=== PATIENT | male | born 1945 | race Caucasian/White ===

== ENCOUNTER → 2017-08-21 | Outpatient (CLI) | payer OTHER, MEDICARE ==
[~2017-08-21] MED LIST: KETOROLAC10 MG PO; MEDROL DOSEPAK4 MG PO
== END | disposition home or self-care (01) ==
LOC: US 10:40
DX: I65.23 Occlusion and stenosis of bilateral carotid arteries (principal); Z95.5 Presence of coronary angioplasty implant and graft

== ENCOUNTER 2018-04-30 14:01 | Inpatient (IN) | payer OTHER, MEDICARE ==
[~2018-04-30] VITALS: Ht 160 cm
--- NOTE | ~2018-04-30 | O ---
[place], [place] OPERATIVE NOTE NAME: MANJIT WASSERMAN UNIT #: [id number] ROOM: 529 DOCTOR: NIKITA HARLEY MD BIRTHDATE: [birth year] DOS: 05/01/2018 INDICATIONS: This is a 73-year-old patient who has presented with chief complaint of diarrhea for 1 month, preceding antibiotic therapy. PROCEDURE: Today's procedure part of investigation is colonoscopy plus biopsy. PREMEDICATION: Propofol. SCOPE: Olympus folding colonoscope 10L video. REPORT: After putting the patient in left lateral position and application of lubricant to the scope, the scope was introduced. Thereafter under direct visualization, advanced through the length of colon without difficulty. Base of the cecum explored, appendiceal orifice identified, ileocecal valve was noticed. Scope was gradually withdrawn from ascending, transverse, descending colon. Few rare small diverticula are noticed at the sigmoid, otherwise. Biopsies was obtained from antrum transverse colon. Biopsies to rule out collagenous colitis, ruling out eosinophilic, lymphocytic infiltrates or collagenous deposit, basement membrane. The patient extubated, tolerated the procedure well. IMPRESSION AND PLAN: Normal colonoscopic examination in appearance. Mild diverticulosis of sigmoid colon, status post biopsy, awaiting biopsy reports. I am uncertain if this patient is having an extensive diarrhea yesterday. However, we have to await biopsy report. On the other hand, in order to reduce his symptomatology, we are going to start him on Questran 1 pack b.i.d., twice today and daily to assure if truly is responding to this. On the other hand because of the history that he is providing to have an extensive diarrhea, we are going to reculture his colon with a probiotic, Florastor 250 mg b.i.d. while inpatient and prescription for 2 weeks as an outpatient and this patient can be managed otherwise in outpatient setting. He is going to be advised to abstain excessive dairy product and workup in progress. [place], [place] OPERATIVE NOTE NAME: MANJIT WASSERMAN UNIT #: [id number] ROOM: 529 DOCTOR: NIKITA HARLEY MD BIRTHDATE: [birth year] NIKITA HARLEY MD CM:OPRECORD:OPERATIVE NOTE 1622 [id number] NIKITA HARLEY MD 05/02/18 0324 interface
--- NOTE | ~2018-04-30 | CON ---
[place], [place] REPORT OF CONSULTATION NAME[id number] UNIT #: [id number] ROOM: 529 DOCTOR: NIKITA HARLEY MD BIRTHDATE: [birth year] DOS: 05/01/2018 HISTORY OF PRESENT ILLNESS: This is a 73-year-old patient who has presented with chief complaint of 1 month of diarrhea and he has been giving me history of amoxicillin product intake for 10 days; however, the diarrhea has been preceding the issue of antibiotic intake. However, he was admitted through the Emergency Room. Lactic acid was 1.7. White blood cell was 6, H and H of 13 and 38, differential within normal limits. INR 1.0, comprehensive metabolic panel, electrolyte balance, magnesium 2.2. Troponins normal. BNP normal. Hemoglobin A1c 5.7. Ova and parasite and Giardia negative. C. diff is pending. Cryptosporidium negative. PAST MEDICAL HISTORY: Degenerative joint disease, constipation, abdominal pain, sciatica, history of sacral ulceration, decubitus, BPH and hypertension. PAST SURGICAL HISTORY: Endarterectomy, left-sided and history of appendectomy. SOCIAL HISTORY: Cigar smoker. Social alcohol consumer. FAMILY HISTORY: Noncontributory. ALLERGIES: No known medications. MEDICATIONS: Medication list reviewed. REVIEW OF SYSTEMS: HEENT: Denies double vision, blurred vision. RESPIRATORY: Denies shortness of breath. CARDIOVASCULAR: Denies chest pain. DIGESTIVE SYSTEM: Diarrhea. No emesis. PHYSICAL EXAMINATION: GENERAL: Frail patient. VITAL SIGNS: Stable. HEENT: Head is normocephalic, nontraumatic. Mouth and buccal mucosa benign. NECK: Supple, no thyromegaly, no cervical lymphadenopathy. CHEST: Symmetric anatomy, equal expansion. No wheeze, no rhonchi. HEART: Normal sinus rhythm, no gallop, no murmur. ABDOMEN: Soft. No hepato-organomegaly. Bowel sounds present. EXTREMITIES: No cyanosis, no pedal edema. NEUROLOGIC: Alert, oriented to time, place, person. A small sacral ulceration is noticed, which appears to be secondary to pressure. IMPRESSION: Chronic diarrhea, etiology to be defined at least 1 month duration. Infectious causes are being sorted out. Clostridium difficile is pending. We are going to proceed with evaluation of colon while he is here to assure there is no other concerning pathology and biopsies were going to be taken. [place], [place] REPORT OF CONSULTATION NAME: MANJIT WASSERMAN Desiree UNIT #: [id number] ROOM: 529 DOCTOR: CHERRI HOLLEY,NIKITA BIRTHDATE: [birth year] NIKITA HARLEY MD CM:CONSTR:REPORT OF CONSULTATION 1622 05/02/18 0316 interface
--- NOTE | ~2018-04-30 | EKG ---
[place], [place] ELECTROCARDIOGRAM REPORT NAME: MANJIT WASSERMAN UNIT #: [id number] ROOM: 529 DOCTOR: DEVON DRAFT REPORT BIRTHDATE: [birth year] [facility] Test Date: 2018-04-30 Test Time: 14:23:15 Pat Name: MANJIT WASSERMAN Department: Room: 529 Gender: M Sales And Marketing Intern: : 1945 Requested By: OLENA SAINI Order Number: [id number] Reading MD: Dilan Urena MD Measurements Intervals [place] Rate: 71 P: 46 MS: 123 QRS: 55 QRSD: 87 T: 18 QT: 380 QTc: 413 Interpretive Statements Sinus rhythm LVH with secondary repolarization abnormality Electronically Signed On 05-01-2018 4:29:11 PDT by Dilan Urena MD CM:EKGRPT:ELECTROCARDIOGRAM REPORT 1423 0429 OLENA PEPPER DRAFT REPORT OLENA SAINI DO
[~2018-04-30 14:01] MED LIST changes: +AMOXICILLIN500 M2 PO; +FLONASE ALLERG9.9 ML NAS; +HYDROCODONE-AC1 EAC1 PO; +MIRALAX POWDER255 G1 PO
[2018-04-30 14:03] VITALS: BP 142/86
[2018-04-30 14:25] LABS: BASO # 0.1 10*3/uL (0.0-0.1); BASO % 0.9 % (0.0-1.0); EOS # 0.1 10*3/uL (0.0-0.4); EOS % 1.5 % (1.0-4.0); HEMATOCRIT 38.7 % (42.0-52.0); HEMOGLOBIN 13.3 g/dl (14.0-18.0); LYMPH # 2.3 10*3/uL (1.3-4.4); LYMPH % 34.3 % (27.0-41.0); MEAN CELL VOLUME 93.9 fl (80.0-94.0); MEAN CORPUSCULAR HGB 32.3 pg (27.0-31.0); MEAN CORPUSCULAR HGB CONC 34.4 g/dl (33.0-37.0); MEAN PLATELET VOLUME 9.9 fl (9.6-12.3); MONO # 0.7 10*3/uL (0.1-1.0); MONO % 9.9 % (3.0-9.0); NEUT # 3.5 10*3/uL (2.3-7.9); NEUT % 53.2 % (47.0-73.0); PLATELET COUNT AUTOMATED 259 10*3/uL (130-400); RED BLOOD COUNT 4.12 10*6/uL (4.50-5.90); RED CELL DISTRI WIDTH 12.6 % (0-14.5); WHITE BLOOD COUNT 6.6 10*3/uL (4.8-10.8)
[2018-04-30 14:35] LABS: ACT PARTIAL THROMBO TIME 25.6 SECONDS (20.8-31.5)
[2018-04-30 14:40] LABS: ALBUMIN 3.6 gm/dl (3.1-4.5); ALKALINE PHOSPHATASE 90 U/L (45-117); BUN 17 mg/dl (7-24); CHLORIDE 104 mmol/L (98-107); CREATININE 0.77 mg/dL (0.70-1.30); LIPASE 114 U/L (73-393); POTASSIUM 3.8 mmol/L (3.5-5.1); SGOT/AST 18 IU/L (3-35); SGPT/ALT 26 U/L (12-78); SODIUM 138 mmol/L (136-145); TOTAL PROTEIN 7.3 gm/dL (6.4-8.2)
[2018-04-30 14:41] LABS: TROPONIN I < 0.015 ng/ml (<0.045)
[2018-04-30 20:00] VITALS: BP 200/80
[2018-04-30 21:07] VITALS: BP 164/82
[2018-05-01] VITALS (8 sets, daily range): BP systolic 96–170; BP diastolic 56–95
[2018-05-01 06:29] LABS: BASO # 0.1 10*3/uL (0.0-0.1); BASO % 0.8 % (0.0-1.0); EOS # 0.2 10*3/uL (0.0-0.4); EOS % 2.7 % (1.0-4.0); HEMOGLOBIN 12.8 g/dl (14.0-18.0); LYMPH # 2.4 10*3/uL (1.3-4.4); LYMPH % 34.2 % (27.0-41.0); MEAN CELL VOLUME 94.6 fl (80.0-94.0); MEAN CORPUSCULAR HGB 32.7 pg (27.0-31.0); MEAN CORPUSCULAR HGB CONC 34.6 g/dl (33.0-37.0); MEAN PLATELET VOLUME 10.2 fl (9.6-12.3); MONO # 0.7 10*3/uL (0.1-1.0); MONO % 9.9 % (3.0-9.0); NEUT # 3.7 10*3/uL (2.3-7.9); NEUT % 52.3 % (47.0-73.0); PLATELET COUNT AUTOMATED 231 10*3/uL (130-400); RED BLOOD COUNT 3.91 10*6/uL (4.50-5.90); RED CELL DISTRI WIDTH 12.5 % (0-14.5); WHITE BLOOD COUNT 7.1 10*3/uL (4.8-10.8)
[2018-05-01 07:05] LABS: BUN 10 mg/dl (7-24); CHLORIDE 105 mmol/L (98-107); CHOLESTEROL 138 mg/dL (<200); CREATININE 0.47 mg/dL (0.70-1.30); PHOSPHOROUS 2.5 mg/dL (2.5-4.9); POTASSIUM 3.5 mmol/L (3.5-5.1); SODIUM 139 mmol/L (136-145)
[2018-05-01 07:16] LABS: FREE T4 1.17 ng/dl (0.76-1.46); HDL CHOLESTEROL 41 mg/dl (40-60); LDL CHOLESTEROL 81 mg/dL (9-159); TRIGLYCERIDES 79 mg/dl (<150); VLDL CHOLESTEROL 16 mg/dL (6-40)
[2018-05-01 08:11] LABS: VITAMIN D, 25-HYDROXY 26.6 ng/mL (30-100)
[2018-05-02 01:05] VITALS: BP 128/73
[2018-05-02 08:00] VITALS: BP 122/72
[2018-05-02 12:00] VITALS: BP 126/64
[2018-05-02] MEDS ORDERED: Vitamin D PO (12:21)
[2018-05-02] MEDS ORDERED: VITAMIN D-32000 UNIT PO (12:21)
[2018-05-02] MEDS ORDERED: QUESTRAN POWDE378 GM PO (12:24)
[2018-05-02] MEDS ORDERED: FLORASTOR250 MG PO (12:24)
[2018-07-20] MEDS ORDERED: Zofran4 MG SL (13:32)
[2018-07-20] MEDS ORDERED: LACTINEX 0.2 MG1 TAB PO (13:32)
[2018-07-20] MEDS ORDERED: PHARMASSURE FO0.4 MG PO (13:32)
== END 2018-05-02 14:30 | disposition home or self-care (01) | DRG 392 ==
LOC: ED 14:01 → EDHOLD 15:28 → 5E 15:28
PROVIDERS: Emergency Medicine; Internal Medicine
PROC: 0DBN8ZX Excision of Sigmoid Colon, Via Natural or Artificial Opening Endoscopic, Diagnostic (ICD-10-PCS; principal; 2018-05-01)
PROC: 0DBL8ZX Excision of Transverse Colon, Via Natural or Artificial Opening Endoscopic, Diagnostic (ICD-10-PCS; principal; 2018-05-01)
DX: K57.30 Diverticulosis of large intestine without perforation or abscess without bleeding (principal); I10 Essential (primary) hypertension; E83.41 Hypermagnesemia; E86.0 Dehydration; N40.0 Benign prostatic hyperplasia without lower urinary tract symptoms; M19.90 Unspecified osteoarthritis, unspecified site; M51.36 Other intervertebral disc degeneration, lumbar region; M54.30 Sciatica, unspecified side; F17.290 Nicotine dependence, other tobacco product, uncomplicated; D50.9 Iron deficiency anemia, unspecified; R53.1 Weakness; Z71.6 Tobacco abuse counseling; Z90.49 Acquired absence of other specified parts of digestive tract; Z82.49 Family history of ischemic heart disease and other diseases of the circulatory system; Z83.1 Family history of other infectious and parasitic diseases

== ENCOUNTER 2018-06-01 14:09 | Inpatient (IN) | payer OTHER ==
[~2018-06-01] VITALS: Ht 160 cm; Wt 53.7 kg
--- NOTE | ~2018-06-01 | CON ---
[place], [place] REPORT OF CONSULTATION NAME: [id number] UNIT #: [id number] ROOM: 415 DOCTOR: MIGUEL A HARLEY MDFAIRFIELDBONNIE BIRTHDATE: [birth year] DOS: 06/03/2018 HISTORY OF PRESENT ILLNESS: A 73-year-old patient who presented with a chief complaint of right upper quadrant pain, undergoing investigation. The patient had a CBC study done, H and H of 11 and 34 with platelet count of 277. Lactic acid 0.8. Comprehensive metabolic panel, GFR greater than 60; however, bilirubin 4.4 with GOT, GPT of 114 and 141 respectively. Alkaline phosphatase is 696 and lipase of 611. Acetaminophen level was low. Salicylate level was low. The patient has been on Pepto-Bismol. CT scan of the abdomen and pelvis has been obtained. Gallbladder hydrops demonstrates all wall thickening, pericholecystic fluid and enhancement consistent with acute cholecystitis. Otherwise, the liver, diffuse periportal edema also was noticed. Hepatic parenchyma was otherwise unremarkable. Gallbladder again hydropic and there is also a cholecystitis suspected. H and H follow up to 13 and 38. Blood cultures negative. His urine culture greater than 100,000 Klebsiella pneumoniae. Gallbladder ultrasound study, gallbladder sludge, evidence of extrahepatic and intrahepatic dilation now noticed and no cholelithiasis noticed. The findings are suspicious for obstructive common duct pathology. PAST MEDICAL HISTORY: Associated with essential hypertension, benign prostatic hypertrophy, degenerative joint disease, lower back pain, protein-calorie malnutrition, vitamin D deficiency. PAST SURGICAL HISTORY: Carotid endarterectomy, appendectomy. SOCIAL HISTORY: Smoker. Social alcohol consumer. FAMILY HISTORY: Noncontributory. ALLERGIES: No known medications. MEDICATIONS: Reviewed. REVIEW OF SYSTEMS: HEENT: Denies double vision, blurred vision. RESPIRATORY: Admits some shortness of breath and cough. CARDIOVASCULAR: Denies chest pain. DIGESTIVE SYSTEM: No hematemesis, no hematochezia. Right upper quadrant pain. Abnormal LFTs. PHYSICAL EXAMINATION: VITAL SIGNS: Stable, frail patient. HEENT: Head normocephalic, nontraumatic. Eyes: Pupils round, reactive. Sclerae nonicteric. Conjunctivae pink. HEART: Normal sinus rhythm, no gallop, no murmur. LUNGS: Pattern like COPD, decreased air entry. No wheeze, no rhonchi, however. ABDOMEN: Soft. No hepato-organomegaly. Bowel sounds present. Tender in the right upper quadrant. EXTREMITIES: No cyanosis, no pedal edema. NEUROLOGIC: Alert, oriented to time, place, and person. [place], [place] REPORT OF CONSULTATION NAME: MANJIT WASSERMAN UNIT #: [id number] ROOM: 415 DOCTOR: NIKITA HARLEY MD BIRTHDATE: [birth year] IMPRESSION: Right upper quadrant pain, cholecystitis, ruling out synchronous pathology and choledocholithiasis versus carcinomatous lesion at the ampulla level. Abnormal liver function tests secondary to above. The patient with a history of degenerative joint disease and essential hypertension, vitamin D deficiency, benign prostatic enlargement as well. He has been noticed to have extensive vascular calcific pathology. 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 Infrarenal artery demonstrate severe ulcerative atherosclerotic plaque, fusiform aneurysm, suprarenal atherosclerosis as detailed in MRI of the abdomen. PLAN AND DISCUSSION: We are going to see what the status of the common duct is. Hopefully, we are going to be able to cannulate him and if such, then we are going to provide a stent in common duct and I recommend that to be followed if next day cholecystectomy. Bearing in mind that he is extremely compromised as far as vascular insufficiency is concerned. NIKITA HARLEY MD CM:CONSTR:REPORT OF CONSULTATION 1524 06/04/18 0223 interface
--- NOTE | ~2018-06-01 | O ---
[place], [place] OPERATIVE NOTE NAME: MANJIT WASSERMAN UNIT #: [id number] ROOM: 415 DOCTOR: NIKITA HARLEY MD BIRTHDATE: [birth year] DOS: 06/03/2018 GASTROENDOSCOPIC REPORT HISTORY OF PRESENT ILLNESS: A 73-year-old patient who presented with chief complaint of abnormal liver function test, perihepatic fluid, pericholecystic fluid, hydrops of gallbladder, edema of the gallbladder and right upper quadrant pain. The patient suspected to have common duct pathology, i.e., obstructive carcinoma versus distal common duct/colic of gallbladder sonogram was evidence of extrahepatic and intrahepatic dilation. Findings suspicious for obstructed common duct correlated with recent studies. PROCEDURE: Today's procedure part of investigation is ERCP. PREMEDICATION: Propofol and sedation by anesthesia. SCOPE: Olympus side-viewing duodenoscope. REPORT: After putting the patient in left lateral position and application of lubricant to the scope, the scope was introduced. Thereafter, under direct visualization, advanced through the length of esophagus into gastric pouch into the duodenal bulb in front of the ampulla of Vater, ampulla of Vater is extremely edematous on approach; however, we were able to cannulate the papilla. Papilla is extremely dominant with pancreatic duct and common duct could not be cannulated. Although some bile was discharged upon manipulation. However, papilledema continues and C-loop of the duodenum is extremely inflamed and I am concerned if there is any carcinoma around the area. However, the pancreatic duct was injected, very irregular pancreatic duct and photos were obtained. The patient was extubated after multiple tries to access the common duct, which was fruitless. IMPRESSION: Papilledema, abnormal pancreatic duct, inflammation and edema of the second part of duodenum, concerned if there is underlying carcinoma. PLAN AND DISCUSSION: This patient with extreme vascular calcifications in a generalized form and a very large gallbladder. We are going to pericholecystic fluid and perihepatic fluid and it would be friend to transfer to tertiary center for definitive management. [place], [place] OPERATIVE NOTE NAME: MANJIT WASSERMAN UNIT #: [id number] ROOM: 415 DOCTOR: NIKITA HARLEY MD BIRTHDATE: [birth year] NIKITA HARLEY MD CM:MARYAM:OPERATIVE NOTE 1644 1716 NIKITA HARLEY MD 06/10/18 0808 interface
[~2018-06-01 14:09] MED LIST changes: +FLORASTOR250 MG PO; +QUESTRAN POWDE378 GM PO; +VITAMIN D-32000 UNIT PO; +Vitamin D PO
[2018-06-01 14:10] VITALS: BP 131/79
[2018-06-01 14:59] LABS: BASO % 0.4 % (0.0-1.0); EOS # 0.1 10*3/uL (0.0-0.4); EOS % 0.6 % (1.0-4.0); HEMATOCRIT 34.4 % (42.0-52.0); HEMOGLOBIN 11.9 g/dl (14.0-18.0); LYMPH # 1.5 10*3/uL (1.3-4.4); MEAN CELL VOLUME 95.6 fl (80.0-94.0); MEAN CORPUSCULAR HGB 33.1 pg (27.0-31.0); MEAN CORPUSCULAR HGB CONC 34.6 g/dl (33.0-37.0); MEAN PLATELET VOLUME 10.3 fl (9.6-12.3); MONO % 10.8 % (3.0-9.0); NEUT # 6.7 10*3/uL (2.3-7.9); NEUT % 71.9 % (47.0-73.0); PLATELET COUNT AUTOMATED 277 10*3/uL (130-400); RED CELL DISTRI WIDTH 12.9 % (0-14.5); WHITE BLOOD COUNT 9.3 10*3/uL (4.8-10.8)
[2018-06-01 15:21] LABS: ALBUMIN 2.5 gm/dl (3.1-4.5); ALKALINE PHOSPHATASE 696 U/L (45-117); BUN 8 mg/dl (7-24); CHLORIDE 100 mmol/L (98-107); LIPASE 611 U/L (73-393); POTASSIUM 3.7 mmol/L (3.5-5.1); SGOT/AST 114 IU/L (3-35); SGPT/ALT 141 U/L (12-78); SODIUM 137 mmol/L (136-145); TOTAL PROTEIN 6.4 gm/dL (6.4-8.2)
[2018-06-01 16:00] VITALS: BP 132/81
[2018-06-01 16:32] LABS: ACETAMINOPHEN (TYLENOL) < 5.0 ug/ml (10-30)
[2018-06-01 16:33] LABS: CLARITY TURBID (CLEAR); COLOR ORANGE (YELLOW); GLUCOSE NEGATIVE (NEGATIVE)
[2018-06-01 16:34] LABS: BILIRUBIN 3+ (NEGATIVE); BLOOD NEGATIVE (NEGATIVE); KETONE TRACE (NEGATIVE); LEUKO ESTERASE 2+ (NEGATIVE); NITRITE POSITIVE (NEGATIVE); UROBILINOGEN 0.2 E.U./dl (0.2-1.0)
[2018-06-01 16:36] LABS: BACTERIA 4+; MUCOUS TRACE; RBC 0-2 rbc/hpf (0-2); WBC 31-40 wbc/hpf (0-5)
[2018-06-01 16:39] LABS: ETHYL ALCOHOL < 3.0 mg/dl (<3)
[2018-06-01 18:02] VITALS: BP 129/76
[2018-06-01 20:24] VITALS: BP 130/70
[2018-06-02] VITALS: BP 172/78
[2018-06-02 04:00] VITALS: BP 140/84
[2018-06-02 05:52] LABS: BASO # 0.1 10*3/uL (0.0-0.1); BASO % 0.5 % (0.0-1.0); EOS # 0.1 10*3/uL (0.0-0.4); EOS % 0.9 % (1.0-4.0); HEMATOCRIT 38.4 % (42.0-52.0); LYMPH # 1.7 10*3/uL (1.3-4.4); LYMPH % 17.1 % (27.0-41.0); MEAN CELL VOLUME 95.3 fl (80.0-94.0); MEAN CORPUSCULAR HGB 32.3 pg (27.0-31.0); MEAN CORPUSCULAR HGB CONC 33.9 g/dl (33.0-37.0); MEAN PLATELET VOLUME 10.7 fl (9.6-12.3); MONO # 0.9 10*3/uL (0.1-1.0); MONO % 8.8 % (3.0-9.0); NEUT % 72.4 % (47.0-73.0); PLATELET COUNT AUTOMATED 315 10*3/uL (130-400); RED BLOOD COUNT 4.03 10*6/uL (4.50-5.90); RED CELL DISTRI WIDTH 12.8 % (0-14.5); WHITE BLOOD COUNT 9.7 10*3/uL (4.8-10.8)
[2018-06-02 06:07] LABS: BUN 9 mg/dl (7-24); CHLORIDE 101 mmol/L (98-107); CREATININE 0.49 mg/dL (0.70-1.30); PHOSPHOROUS 3.3 mg/dL (2.5-4.9); POTASSIUM 3.7 mmol/L (3.5-5.1); SODIUM 138 mmol/L (136-145)
[2018-06-02 06:12] LABS: ACT PARTIAL THROMBO TIME 27.6 SECONDS (20.8-31.5); INTERNATIONAL NORM RATIO 1.1 (2.0-3.5)
[2018-06-02 08:00] VITALS: BP 148/72
[2018-06-02 12:00] VITALS: BP 137/78
[2018-06-02 16:00] VITALS: BP 139/82
[2018-06-02 20:00] VITALS: BP 115/73
[2018-06-03] VITALS (10 sets, daily range): BP systolic 92–142; BP diastolic 30–79
[2018-06-03 08:12] LABS: BASO % 0.4 % (0.0-1.0); EOS # 0.1 10*3/uL (0.0-0.4); EOS % 1.3 % (1.0-4.0); HEMATOCRIT 33.4 % (42.0-52.0); HEMOGLOBIN 11.5 g/dl (14.0-18.0); LYMPH # 1.5 10*3/uL (1.3-4.4); LYMPH % 17.9 % (27.0-41.0); MEAN CELL VOLUME 94.4 fl (80.0-94.0); MEAN CORPUSCULAR HGB 32.5 pg (27.0-31.0); MEAN CORPUSCULAR HGB CONC 34.4 g/dl (33.0-37.0); MEAN PLATELET VOLUME 10.3 fl (9.6-12.3); MONO # 0.9 10*3/uL (0.1-1.0); MONO % 10.6 % (3.0-9.0); NEUT # 5.9 10*3/uL (2.3-7.9); NEUT % 69.4 % (47.0-73.0); PLATELET COUNT AUTOMATED 278 10*3/uL (130-400); RED BLOOD COUNT 3.54 10*6/uL (4.50-5.90); RED CELL DISTRI WIDTH 12.7 % (0-14.5); WHITE BLOOD COUNT 8.5 10*3/uL (4.8-10.8)
[2018-06-03 08:37] LABS: ALBUMIN 2.4 gm/dl (3.1-4.5); BUN 10 mg/dl (7-24); CHLORIDE 100 mmol/L (98-107); POTASSIUM 3.6 mmol/L (3.5-5.1); SGPT/ALT 125 U/L (12-78); SODIUM 136 mmol/L (136-145)
[2018-06-03 08:40] LABS: ALKALINE PHOSPHATASE 699 U/L (45-117); CREATININE 0.53 mg/dL (0.70-1.30); SGOT/AST 96 IU/L (3-35); TOTAL PROTEIN 6.1 gm/dL (6.4-8.2)
[2018-06-04] VITALS: BP 125/77
[2018-06-04 06:22] LABS: BASO % 0.4 % (0.0-1.0); EOS # 0.1 10*3/uL (0.0-0.4); EOS % 1.4 % (1.0-4.0); HEMATOCRIT 32.4 % (42.0-52.0); HEMOGLOBIN 11.3 g/dl (14.0-18.0); LYMPH # 1.5 10*3/uL (1.3-4.4); LYMPH % 21.6 % (27.0-41.0); MEAN CELL VOLUME 93.6 fl (80.0-94.0); MEAN CORPUSCULAR HGB 32.7 pg (27.0-31.0); MEAN CORPUSCULAR HGB CONC 34.9 g/dl (33.0-37.0); MEAN PLATELET VOLUME 10.9 fl (9.6-12.3); MONO # 0.9 10*3/uL (0.1-1.0); MONO % 12.4 % (3.0-9.0); NEUT # 4.5 10*3/uL (2.3-7.9); NEUT % 64.1 % (47.0-73.0); PLATELET COUNT AUTOMATED 282 10*3/uL (130-400); RED BLOOD COUNT 3.46 10*6/uL (4.50-5.90); RED CELL DISTRI WIDTH 12.7 % (0-14.5)
[2018-06-04 06:33] LABS: ALBUMIN 2.2 gm/dl (3.1-4.5); ALKALINE PHOSPHATASE 718 U/L (45-117); BUN 9 mg/dl (7-24); CHLORIDE 102 mmol/L (98-107); CREATININE 0.54 mg/dL (0.70-1.30); POTASSIUM 3.3 mmol/L (3.5-5.1); SGOT/AST 128 IU/L (3-35); SGPT/ALT 129 U/L (12-78); SODIUM 138 mmol/L (136-145); TOTAL PROTEIN 5.7 gm/dL (6.4-8.2)
[2018-06-04 08:00] VITALS: BP 130/78
[2018-06-04 12:00] VITALS: BP 144/78
[2018-06-04 16:00] VITALS: BP 123/63
[2018-07-20] MEDS ORDERED: LACTINEX 0.2 MG1 TAB PO (13:32)
[2018-07-20] MEDS ORDERED: PHARMASSURE FO0.4 MG PO (13:32)
[2018-07-20] MEDS ORDERED: Zofran4 MG SL (13:32)
== END 2018-06-04 17:06 | disposition short-term general hospital (02) | DRG 444 ==
LOC: ED 14:09 → EDHOLD 17:36 → 4E 17:36
PROVIDERS: Internal Medicine; Nurse Practitioner Family
PROC: 0FJD8ZZ Inspection of Pancreatic Duct, Via Natural or Artificial Opening Endoscopic (ICD-10-PCS; principal; 2018-06-03)
DX: K80.01 Calculus of gallbladder with acute cholecystitis with obstruction (principal); E43 Unspecified severe protein-calorie malnutrition; H47.10 Unspecified papilledema; K80.43 Calculus of bile duct with acute cholecystitis with obstruction; N30.90 Cystitis, unspecified without hematuria; E80.6 Other disorders of bilirubin metabolism; E86.0 Dehydration; M51.36 Other intervertebral disc degeneration, lumbar region; R82.71 Bacteriuria; I71.4 Abdominal aortic aneurysm, without rupture; F17.210 Nicotine dependence, cigarettes, uncomplicated; K29.80 Duodenitis without bleeding; D53.9 Nutritional anemia, unspecified; F17.200 Nicotine dependence, unspecified, uncomplicated; I10 Essential (primary) hypertension; E55.9 Vitamin D deficiency, unspecified; B96.89 Other specified bacterial agents as the cause of diseases classified elsewhere; N40.1 Benign prostatic hyperplasia with lower urinary tract symptoms; Z90.49 Acquired absence of other specified parts of digestive tract; Z71.6 Tobacco abuse counseling; Z82.49 Family history of ischemic heart disease and other diseases of the circulatory system; Z82.5 Family history of asthma and other chronic lower respiratory diseases; Z79.1 Long term (current) use of non-steroidal anti-inflammatories (NSAID); Z79.899 Other long term (current) drug therapy; Z68.20 Body mass index [BMI] 20.0-20.9, adult

== ENCOUNTER 2018-06-11 18:22 | Inpatient (IN) | payer OTHER ==
[~2018-06-11] VITALS: Ht 160 cm; Wt 46.7 kg
--- NOTE | ~2018-06-11 | EKG ---
[place], [place] ELECTROCARDIOGRAM REPORT NAME: MANJIT WASSERMAN UNIT #: [id number] ROOM: 406 DOCTOR: DEVON DRAFT REPORT BIRTHDATE: [address] [facility] Test Date: 2018-06-11 Test Time: 18:53:19 Pat Name: MANJIT WASSERMAN Department: ER Room: 406 Gender: M Rapid Transit Operator: Dianne Guo : 1945 Requested By: LEA LIZAMA DNP Order Number: [id number] Reading MD: Felicia Hagan MD Measurements Intervals [place] Rate: 80 P: 65 DE: 167 QRS: 63 QRSD: 92 T: -39 QT: 401 QTc: 463 Interpretive Statements Sinus rhythm LVH with secondary repolarization abnormality Baseline wander in lead(s) V3 Compared to ECG 04/30/2018 14:23:15 Sinus rhythm no longer present Electronically Signed On 06-12-2018 12:12:15 PDT by Felicia Hagan MD CM:EKGRPT:ELECTROCARDIOGRAM REPORT 1212 LEA LIZAMA DNP EPIPHANY DRAFT REPORT LEA LIZAMA DNP
--- NOTE | ~2018-06-11 | CON ---
[place], [place] REPORT OF CONSULTATION [id number] UNIT #: [id number] ROOM: 406 DOCTOR: CHERRI HOLLEYNIKITA BIRTHDATE: [birth year] DOS: 06/12/2018 GASTROENDOSCOPIC CONSULTATION REPORT HISTORY OF PRESENT ILLNESS: A 73-year-old patient who has presented with nausea, vomiting, diarrhea history. The patient is known with abnormal liver function tests, previously ERCP, then stented in [facility] after transfer from [place]. The patient apparently did not have his cholecystectomy there done and he has continued with his symptomatology right at the time of admission. White blood cells 7, H and H of 11 and 35. Serum ammonia level was 18. His chest x-ray, no acute process. CT of the brain, no acute process. His comprehensive metabolic panel, GFR greater than 60. Electrolyte imbalance; bilirubin 2.2 and GOT/GPT 46 and 95, alkaline phosphatase of 505 and lipase of 550. His INR 1.0. His C. diff is negative and CBC stable. PAST MEDICAL HISTORY: Associated essential hypertension, benign prostatic hypertrophy, infrarenal abdominal aortic aneurysm and protein-calorie malnutrition. PAST SURGICAL HISTORY: Endarterectomy, appendectomy. SOCIAL HISTORY: Smoker. Social alcohol consumer. FAMILY HISTORY: Noncontributory. ALLERGIES: No known medications. MEDICATIONS: List has been reviewed including cholestyramine 1 pack a day that has not helped him much. He has been also on Florastor. REVIEW OF SYSTEMS: HEENT: Denies double vision or blurred vision. RESPIRATORY: Denies acute shortness of breath. CARDIOVASCULAR: Denies acute chest pain. DIGESTIVE SYSTEM: Nausea, vomiting, diarrhea, fear of eating because of the diarrhea. PHYSICAL EXAMINATION: VITAL SIGNS: Frail patient. HEENT: Head: Normocephalic, nontraumatic. Eyes: Pupils round, reactive. Sclerae nonicteric. Conjunctivae pink. NECK: Supple, no thyromegaly. CHEST: Symmetric anatomy, no wheeze, no rhonchi. HEART: Normal sinus rhythm, no gallop, no murmur. ABDOMEN: Soft. No hepato-organomegaly. Bowel sounds present. EXTREMITIES: Dry. NEUROLOGIC: Alert and oriented. LABORATORY DATA: Labs reviewed, records reviewed. [place], [place] REPORT OF CONSULTATION NAME: MANJIT WASSERMAN UNIT #: [id number] ROOM: 406 DOCTOR: CHERRI HOLLEY,NIKITA BIRTHDATE: [birth year] IMPRESSION: Abnormal liver function tests, status post biliary stenting, nausea, vomiting and diarrhea history, unresponsive to cholestyramine. PLAN AND DISCUSSION: This patient has been already generally considered to have cholecystitis. He still believes that there is an element of above on board. I have been concerned about occult malignancy of the liver bed, his gallbladder involvement and he has a mild pancreatitis as well. He may need a colonoscopy since his C. diff basic studies of the stool has been unremarkable. Essentially, we have to overcome the presence of a pathologic gallbladder and presentation of some of symptomatology including nausea and vomiting. We have to bring him to a point where he can ingest food and he is free of diarrhea or at least to define the pathology. I wonder if the patient is going to be sent back to [facility] for cholecystectomy or is it going to be done here and in either case, I will be standing by to follow along. Thank you very much indeed. NIKITA HARLEY MD CM:CONSTR:REPORT OF CONSULTATION 1709 06/13/18 0501 interface
[2018-06-11 18:22] VITALS: BP 146/73
[2018-06-11 19:11] LABS: BASO # 0.1 10*3/uL (0.0-0.1); BASO % 0.9 % (0.0-1.0); EOS # 0.1 10*3/uL (0.0-0.4); EOS % 1.8 % (1.0-4.0); HEMOGLOBIN 11.8 g/dl (14.0-18.0); LYMPH # 1.9 10*3/uL (1.3-4.4); LYMPH % 27.1 % (27.0-41.0); MEAN CELL VOLUME 96.7 fl (80.0-94.0); MEAN CORPUSCULAR HGB 32.6 pg (27.0-31.0); MEAN CORPUSCULAR HGB CONC 33.7 g/dl (33.0-37.0); MEAN PLATELET VOLUME 10.2 fl (9.6-12.3); MONO # 0.8 10*3/uL (0.1-1.0); MONO % 10.9 % (3.0-9.0); NEUT # 4.2 10*3/uL (2.3-7.9); PLATELET COUNT AUTOMATED 332 10*3/uL (130-400); RED BLOOD COUNT 3.62 10*6/uL (4.50-5.90); RED CELL DISTRI WIDTH 13.3 % (0-14.5)
[2018-06-11 19:28] LABS: ALBUMIN 2.8 gm/dl (3.1-4.5); ALKALINE PHOSPHATASE 505 U/L (45-117); BUN 8 mg/dl (7-24); CHLORIDE 100 mmol/L (98-107); CREATININE 0.58 mg/dL (0.70-1.30); LIPASE 550 U/L (73-393); POTASSIUM 3.5 mmol/L (3.5-5.1); SGOT/AST 46 IU/L (3-35); SGPT/ALT 95 U/L (12-78); SODIUM 137 mmol/L (136-145); TOTAL PROTEIN 6.7 gm/dL (6.4-8.2)
[2018-06-11 19:31] LABS: TROPONIN I < 0.015 ng/ml (<0.045)
[2018-06-11 19:33] LABS: ACT PARTIAL THROMBO TIME 26.7 SECONDS (20.8-31.5); INTERNATIONAL NORM RATIO 1.1 (2.0-3.5)
[2018-06-11 19:41] VITALS: BP 139/82
[2018-06-11 20:09] LABS: BILIRUBIN 1+ (NEGATIVE); BLOOD NEGATIVE (NEGATIVE); CLARITY CLEAR (CLEAR); COLOR YELLOW (YELLOW); GLUCOSE TRACE (NEGATIVE); KETONE NEGATIVE (NEGATIVE); LEUKO ESTERASE NEGATIVE (NEGATIVE); NITRITE NEGATIVE (NEGATIVE); UROBILINOGEN 0.2 E.U./dl (0.2-1.0)
[2018-06-11 20:18] LABS: BACTERIA TRACE; CALCIUM OXALATE CRYSTALS 3+; RBC 0-2 rbc/hpf (0-2); WBC 0-2 wbc/hpf (0-5)
[2018-06-11 21:00] VITALS: BP 138/80
[2018-06-11 22:31] VITALS: BP 146/79
[2018-06-11 22:35] VITALS: BP 140/80
[2018-06-12] VITALS: BP 155/67
[2018-06-12 06:51] LABS: BASO # 0.1 10*3/uL (0.0-0.1); BASO % 1.3 % (0.0-1.0); EOS # 0.2 10*3/uL (0.0-0.4); EOS % 2.2 % (1.0-4.0); HEMATOCRIT 38.4 % (42.0-52.0); HEMOGLOBIN 12.6 g/dl (14.0-18.0); LYMPH # 1.9 10*3/uL (1.3-4.4); LYMPH % 25.2 % (27.0-41.0); MEAN CELL VOLUME 99.2 fl (80.0-94.0); MEAN CORPUSCULAR HGB 32.6 pg (27.0-31.0); MEAN CORPUSCULAR HGB CONC 32.8 g/dl (33.0-37.0); MEAN PLATELET VOLUME 10.5 fl (9.6-12.3); MONO # 0.8 10*3/uL (0.1-1.0); NEUT # 4.6 10*3/uL (2.3-7.9); NEUT % 59.9 % (47.0-73.0); PLATELET COUNT AUTOMATED 396 10*3/uL (130-400); RED BLOOD COUNT 3.87 10*6/uL (4.50-5.90); RED CELL DISTRI WIDTH 13.4 % (0-14.5); WHITE BLOOD COUNT 7.7 10*3/uL (4.8-10.8)
[2018-06-12 07:14] LABS: ALBUMIN 2.9 gm/dl (3.1-4.5); ALKALINE PHOSPHATASE 525 U/L (45-117); BUN 8 mg/dl (7-24); CHLORIDE 103 mmol/L (98-107); CREATININE 0.67 mg/dL (0.70-1.30); PHOSPHOROUS 2.4 mg/dL (2.5-4.9); POTASSIUM 3.4 mmol/L (3.5-5.1); SGOT/AST 38 IU/L (3-35); SGPT/ALT 90 U/L (12-78); SODIUM 141 mmol/L (136-145)
[2018-06-12 07:17] LABS: ACT PARTIAL THROMBO TIME 26.7 SECONDS (20.8-31.5); INTERNATIONAL NORM RATIO 1.1 (2.0-3.5)
[2018-06-12 08:00] VITALS: BP 172/80; BP 175/90
[2018-06-12 12:20] VITALS: BP 172/83
[2018-06-12 16:00] VITALS: BP 134/65
[2018-06-12 20:00] VITALS: BP 123/74
[2018-06-13] VITALS: BP 132/70
[2018-06-13 06:04] LABS: BASO # 0.1 10*3/uL (0.0-0.1); BASO % 1.3 % (0.0-1.0); EOS # 0.2 10*3/uL (0.0-0.4); EOS % 2.7 % (1.0-4.0); HEMATOCRIT 34.2 % (42.0-52.0); HEMOGLOBIN 11.3 g/dl (14.0-18.0); LYMPH # 2.6 10*3/uL (1.3-4.4); LYMPH % 38.3 % (27.0-41.0); MEAN CORPUSCULAR HGB 32.4 pg (27.0-31.0); MEAN PLATELET VOLUME 10.6 fl (9.6-12.3); MONO # 0.9 10*3/uL (0.1-1.0); MONO % 12.7 % (3.0-9.0); NEUT % 44.7 % (47.0-73.0); PLATELET COUNT AUTOMATED 358 10*3/uL (130-400); RED BLOOD COUNT 3.49 10*6/uL (4.50-5.90); RED CELL DISTRI WIDTH 13.3 % (0-14.5); WHITE BLOOD COUNT 6.8 10*3/uL (4.8-10.8)
[2018-06-13 06:28] LABS: BUN 8 mg/dl (7-24); CHLORIDE 102 mmol/L (98-107); CREATININE 0.51 mg/dL (0.70-1.30); POTASSIUM 3.8 mmol/L (3.5-5.1); SODIUM 138 mmol/L (136-145)
[2018-06-13 08:00] VITALS: BP 142/75
[2018-06-13 12:00] VITALS: BP 103/58
[2018-06-13] MEDS ORDERED: ANTI-DIARRHEA2 MG PO (14:18)
[2018-07-20] MEDS ORDERED: PHARMASSURE FO0.4 MG PO (13:32)
[2018-07-20] MEDS ORDERED: LACTINEX 0.2 MG1 TAB PO (13:32)
[2018-07-20] MEDS ORDERED: Zofran4 MG SL (13:32)
== END 2018-06-13 14:33 | disposition home or self-care (01) | DRG 71 ==
LOC: ED 18:22 → EDHOLD 21:49 → 4E 21:49
PROVIDERS: Internal Medicine; Nurse Practitioner Family
DX: G93.41 Metabolic encephalopathy (principal); R17 Unspecified jaundice; E44.0 Moderate protein-calorie malnutrition; Z68.1 Body mass index [BMI] 19.9 or less, adult; R73.9 Hyperglycemia, unspecified; E83.41 Hypermagnesemia; R00.1 Bradycardia, unspecified; E80.6 Other disorders of bilirubin metabolism; F17.210 Nicotine dependence, cigarettes, uncomplicated; M51.36 Other intervertebral disc degeneration, lumbar region; R19.7 Diarrhea, unspecified; E73.9 Lactose intolerance, unspecified; D53.9 Nutritional anemia, unspecified; I10 Essential (primary) hypertension; Z90.49 Acquired absence of other specified parts of digestive tract; Z82.49 Family history of ischemic heart disease and other diseases of the circulatory system; Z82.5 Family history of asthma and other chronic lower respiratory diseases; Z79.1 Long term (current) use of non-steroidal anti-inflammatories (NSAID); Z79.899 Other long term (current) drug therapy

== ENCOUNTER 2018-07-23 13:26 | Emergency (ER) | payer OTHER ==
[~2018-07-23] VITALS: Ht 160 cm; Wt 46.3 kg
[~2018-07-23 13:26] MED LIST changes: +ANTI-DIARRHEA2 MG PO; +LACTINEX 0.2 MG1 TAB PO; +PHARMASSURE FO0.4 MG PO; +Zofran4 MG SL
[2018-07-23 14:36] LABS: BASO % 0.4 % (0.0-1.0); EOS % 0.5 % (1.0-4.0); HEMATOCRIT 32.6 % (42.0-52.0); HEMOGLOBIN 11.1 g/dl (14.0-18.0); LYMPH # 1.8 10*3/uL (1.3-4.4); LYMPH % 24.2 % (27.0-41.0); MEAN CORPUSCULAR HGB 32.4 pg (27.0-31.0); MEAN PLATELET VOLUME 9.5 fl (9.6-12.3); MONO # 0.8 10*3/uL (0.1-1.0); MONO % 10.8 % (3.0-9.0); NEUT # 4.8 10*3/uL (2.3-7.9); NEUT % 63.6 % (47.0-73.0); PLATELET COUNT AUTOMATED 224 10*3/uL (130-400); RED BLOOD COUNT 3.43 10*6/uL (4.50-5.90); RED CELL DISTRI WIDTH 13.3 % (0-14.5); WHITE BLOOD COUNT 7.5 10*3/uL (4.8-10.8)
[2018-07-23 14:50] LABS: ALBUMIN 2.7 gm/dl (3.1-4.5); ALKALINE PHOSPHATASE 192 U/L (45-117); BUN 9 mg/dl (7-24); CHLORIDE 95 mmol/L (98-107); CREATININE 0.62 mg/dL (0.70-1.30); POTASSIUM 3.7 mmol/L (3.5-5.1); SGOT/AST 19 IU/L (3-35); SGPT/ALT 35 U/L (12-78); SODIUM 134 mmol/L (136-145); TOTAL PROTEIN 6.1 gm/dL (6.4-8.2)
[2018-07-23] MEDS ORDERED: IMODIUM A-D2 M2 PO (15:14)
== END 2018-07-23 15:18 | disposition home or self-care (01) ==
LOC: ED 13:26
PROVIDERS: Nurse Practitioner Family
DX: R19.7 Diarrhea, unspecified (principal); F17.210 Nicotine dependence, cigarettes, uncomplicated; Z90.49 Acquired absence of other specified parts of digestive tract

== ENCOUNTER 2018-07-27 01:00 | Emergency (ER) | payer OTHER ==
[~2018-07-27] VITALS: Ht 172.7 cm; Wt 54.4 kg
--- NOTE | ~2018-07-27 | EKG ---
[place], [place] ELECTROCARDIOGRAM REPORT NAME: MANJIT WASSERMAN UNIT #: [id number] ROOM: DOCTOR: EPIPHANY DRAFT REPORT BIRTHDATE: [birth year] [facility] Test Date: 2018-07-27 Test Time: 01:22:42 Pat Name: MANJIT WASSERMAN Department: ER Room: 2 Gender: M In Service Coordinator: Daxa Styles : 1945 Requested By: WES JOY Order Number: [id number] Reading MD: Amari Albert MD Measurements Intervals [place] Rate: 76 P: 75 ID: 147 QRS: 82 QRSD: 98 T: 94 QT: 432 QTc: 486 Interpretive Statements Sinus rhythm Anterolateral infarct, age indeterminate Abnormal T, consider ischemia, lateral leads Compared to ECG 07/02/2018 09:10:25 Myocardial infarct finding now present T-wave abnormality now present Possible ischemia now present Electronically Signed On 07-27-2018 8:14:06 PST by Amari Albert MD CM:EKGRPT:ELECTROCARDIOGRAM REPORT 0122 0814 WES PEPPER DRAFT REPORT WES JOY DO
[~2018-07-27 01:00] MED LIST changes: +IMODIUM A-D2 M2 PO
[2018-07-27 01:37] LABS: BASO # 0.1 10*3/uL (0.0-0.1); BASO % 0.4 % (0.0-1.0); EOS % 0.1 % (1.0-4.0); HEMATOCRIT 34.7 % (42.0-52.0); HEMOGLOBIN 11.7 g/dl (14.0-18.0); LYMPH # 1.4 10*3/uL (1.3-4.4); LYMPH % 11.9 % (27.0-41.0); MEAN CELL VOLUME 94.8 fl (80.0-94.0); MEAN CORPUSCULAR HGB CONC 33.7 g/dl (33.0-37.0); MEAN PLATELET VOLUME 10.1 fl (9.6-12.3); MONO # 0.8 10*3/uL (0.1-1.0); MONO % 6.4 % (3.0-9.0); NEUT # 9.8 10*3/uL (2.3-7.9); NEUT % 80.9 % (47.0-73.0); PLATELET COUNT AUTOMATED 276 10*3/uL (130-400); RED BLOOD COUNT 3.66 10*6/uL (4.50-5.90); RED CELL DISTRI WIDTH 13.2 % (0-14.5); WHITE BLOOD COUNT 12.1 10*3/uL (4.8-10.8)
[2018-07-27 01:47] LABS: ACT PARTIAL THROMBO TIME 26.6 SECONDS (20.8-31.5); INTERNATIONAL NORM RATIO 1.1 (2.0-3.5)
[2018-07-27 01:48] LABS: ABG BASE EXCESS 0.8 mmol/L (-2.0-2.0); ABG HCO3 25.1 mmol/l (22-26); ABG O2 SATURATION 99.8 % (95-97); ARTERIAL BLOOD GAS PCO2 40.4 mmHg (35-45); ARTERIAL BLOOD GAS PH 7.407 (7.35-7.45)
[2018-07-27 01:56] LABS: ALBUMIN 2.5 gm/dl (3.1-4.5); ALKALINE PHOSPHATASE 259 U/L (45-117); BUN 11 mg/dl (7-24); CHLORIDE 101 mmol/L (98-107); CREATININE 0.56 mg/dL (0.70-1.30); POTASSIUM 3.3 mmol/L (3.5-5.1); SGOT/AST 30 IU/L (3-35); SGPT/ALT 31 U/L (12-78); SODIUM 136 mmol/L (136-145); TOTAL PROTEIN 6.5 gm/dL (6.4-8.2)
[2018-07-27 02:06] LABS: TROPONIN I 0.543 ng/ml (<0.045)
== END 2018-07-27 03:06 | disposition short-term general hospital (02) ==
LOC: ED 01:00
PROVIDERS: Student in an Organized Health Care Education/Training Program
DX: T24.211A Burn of second degree of right thigh, initial encounter (principal); T22.231A Burn of second degree of right upper arm, initial encounter; J70.5 Respiratory conditions due to smoke inhalation; R79.1 Abnormal coagulation profile; I10 Essential (primary) hypertension; F17.210 Nicotine dependence, cigarettes, uncomplicated; X08.8XXA Exposure to other specified smoke, fire and flames, initial encounter; Y93.89 Activity, other specified; Y92.89 Other specified places as the place of occurrence of the external cause; Y99.8 Other external cause status